=== PATIENT | male | born 1960 | race Hispanic/Latino ===

== ENCOUNTER 2018-06-04 16:55 | Inpatient (IN) | payer OTHER, MEDICARE ==
[~2018-06-04] VITALS: Ht 157.5 cm; Wt 40.6 kg
[2018-06-04] VITALS (14 sets, daily range): BP systolic 105–136; BP diastolic 53–77
[2018-06-04] MEDS ORDERED: HEPARIN SODIUM 1000UNIT/ML 10ML VIAL ONE (17:43)
[2018-06-04] MEDS ORDERED: NITROGLYCERIN 5 MG/ML 10 ML VIAL IV ONE (17:43)
[2018-06-04] MEDS ORDERED: LIDOCAINE HCL 2% 20ML ONE (17:43)
[2018-06-04] MEDS ORDERED: IOHEXOL 350 MG/ML 100ML INFUS..BTL IV ONE (17:46)
[2018-06-04] MEDS ORDERED: METOPROLOL TARTRATE 1 MG/ML 5ML VIAL IV ONE ×3 (18:03→18:20)
[2018-06-04] MEDS ORDERED: MORPHINE SULFATE 2 MG/ML 1ML SYG ONE (18:18)
[2018-06-04] MEDS ORDERED: HYDRALAZINE HCL 20 MG/ML VIAL ONE (18:27)
[2018-06-04] MEDS ORDERED: NITROGLYCERIN 50 MG/D5% WATER 1 BOT IV PRN (18:30)
[2018-06-04] MEDS ORDERED: ACETAMINOPHEN-CODEINE 300/30MG TAB PO PRN ×2 (18:30)
[2018-06-04] MEDS ORDERED: ONDANSETRON HCL 4 MG/2 ML VIAL IVP PRN (18:30)
[2018-06-04] MEDS ORDERED: TEMAZEPAM 30 MG CAP PO PRN (18:30)
[2018-06-04] MEDS ORDERED: HEPARIN 25000 UNITS/250 ML D5W 250 ML IV SCH (18:45)
[2018-06-04] MEDS ORDERED: HYDRALAZINE HCL 20 MG/ML VIAL IV PRN (18:45)
[2018-06-04 19:49] LABS: BASOPHILS % (AUTO) 0.5 % (0.0-5.0); EOSINOPHILS % (AUTO) 3.2 % (0.0-8.0); HEMATOCRIT 39.7 % (42-54); LYMPHOCYTES % (AUTO) 13.6 % (21.0-51.0); MEAN CORPUSCULAR HGB CONC 33.5 g/dL (32.0-36.0); MEAN CORPUSCULAR VOLUME 92.7 fL (79-99); MONOCYTES % (AUTO) 7.8 % (3.0-13.0); NEUTROPHILS % (AUTO) 74.9 % (40.0-77.0); PLATELET COUNT (AUTO) 220 K/uL (130-400); RED BLOOD CELL COUNT(AUTO) 4.28 MIL/uL (4.50-6.20); RED CELL DISTRIBUTION WIDTH 13.3 % (11.0-15.5); WHITE BLOOD COUNT (AUTO) 7.1 K/uL (4.8-10.8)
[2018-06-04 20:05] LABS: HEMOGLOBIN A1C 5.8 % (4.0-6.0)
[2018-06-04 20:11] LABS: INR 1.04 (0.85-1.15); PARTIAL THROMBOPLASTIN TIME 74.5 SEC (26.3-35.5); PROTHROMBIN TIME 10.9 SEC (9.6-11.6)
[2018-06-04 20:17] LABS: ALBUMIN 3.2 g/dL (3.5-5.0); BILIRUBIN,TOTAL 0.3 mg/dL (0.2-1.0); CREATININE 0.9 mg/dL (0.5-1.5); POTASSIUM 3.5 mmol/L (3.5-5.1); TOTAL PROTEIN, SERUM 6.9 g/dL (6.0-8.3)
[2018-06-04 20:58] LABS: TROPONIN I 55.93 ng/mL (0.00-0.06)
[2018-06-04] MEDS: HYDRALAZINE HCL 25 MG TABLET PO SCH (21:00)
[2018-06-04] MEDS: METOPROLOL TARTRATE 50 MG TAB PO SCH (21:15)
[2018-06-04] MEDS: POTASSIUM CHLORIDE 20 MEQ ERTAB PO PRN ×2 (21:29→23:20)
[2018-06-04] MEDS ORDERED: MORPHINE SULFATE 5 MG/ML VIAL IVP SCH (22:00)
[2018-06-04] MEDS ORDERED: ONDANSETRON HCL 4 MG/2 ML VIAL IVP SCH (22:00)
[2018-06-05] VITALS (31 sets, daily range): BP systolic 105–200; BP diastolic 53–98
[2018-06-05 03:59] LABS: HEMATOCRIT 36.8 % (42-54); MEAN CORPUSCULAR HEMOGLOBIN 31.4 pg (27.0-33.0); MEAN CORPUSCULAR HGB CONC 33.8 g/dL (32.0-36.0); PLATELET COUNT (AUTO) 230 K/uL (130-400); RED BLOOD CELL COUNT(AUTO) 3.96 MIL/uL (4.50-6.20); WHITE BLOOD COUNT (AUTO) 8.1 K/uL (4.8-10.8)
[2018-06-05 04:22] LABS: CREATININE 1.1 mg/dL (0.5-1.5); POTASSIUM 4.4 mmol/L (3.5-5.1)
[2018-06-05] MEDS ORDERED: PAPAVERINE HCL 30 MG/ML 2ML VIAL ONE (06:19)
[2018-06-05] MEDS ORDERED: OCTYL 2-CYANOACRYLATE 1 EACH TP ONE ×2 (06:19→10:25)
[2018-06-05] MEDS ORDERED: BACITRACIN 50,000 UNIT VIAL ONE (06:20)
[2018-06-05] MEDS ORDERED: CEFUROXIME SODIUM 1.5 GM VIAL IVP PRN (06:30)
[2018-06-05] MEDS ORDERED: LIDOCAINE PF 2% 5ML ABBOJECT ONE (06:54)
[2018-06-05] MEDS ORDERED: PROTAMINE SULFATE 10 MG/ML 25ML VIAL IV ONE (06:54)
[2018-06-05] MEDS ORDERED: SODIUM BICARB 50MEQ 50ML VIAL ONE ×3 (06:55→11:19)
[2018-06-05] MEDS ORDERED: HEPARIN SODIUM 1000UNIT/ML 10ML VIAL ONE ×2 (06:55→08:12)
[2018-06-05] MEDS ORDERED: FENTANYL CITRATE PF 50 MCG/1 ML 20ML VIAL IJ ONE (06:55)
[2018-06-05] MEDS ORDERED: AMINOCAPROIC ACID 250 MG/ML 20 ML VIAL IV ONE (06:55)
[2018-06-05] MEDS ORDERED: MIDAZOLAM HCL 1 MG/ML 5ML VIAL ONE (06:55)
[2018-06-05] MEDS ORDERED: EPINEPHRINE 1 MG/ML AMPULE ONE (06:55)
[2018-06-05] MEDS ORDERED: NOREPINEPHRINE BITARTRATE 1 MG/1 ML ML IV ONE (06:55)
[2018-06-05] MEDS ORDERED: PROPOFOL 10 MG/ML 20ML VIAL IV ONE (06:55)
[2018-06-05] MEDS ORDERED: KETAMINE 50MG/ML SYRINGE 50 MG/ML DISP.SYRIN IV ONE (06:56)
[2018-06-05] MEDS ORDERED: NITROGLYCERIN 50 MG/D5% WATER 1 BOT ONE (07:23)
[2018-06-05] MEDS ORDERED: ROCURONIUM BROMIDE 10MG/1ML 5ML VL ONE (07:23)
[2018-06-05 08:29] LABS: ABG BASE EXCESS -4.3 mmol/L (-2.0-3.0); ABG HCO3 20.7 mmol/L (21.0-28.0); ABG OXYGEN SATURATION 99.4 % (95.0-99.0); ABG PCO2 38 mmHg (35-48)
[2018-06-05] MEDS: HYDRALAZINE HCL 25 MG TABLET PO SCH ×2 (09:00→11:40)
[2018-06-05] MEDS: METOPROLOL TARTRATE 50 MG TAB PO SCH (09:00)
[2018-06-05] MEDS: PNEUMOCOCCAL VACCINE POLYVALENT 0.5 ML/VIAL [PPV] IM SCH (09:00)
[2018-06-05] MEDS: PANTOPRAZOLE SODIUM 40 MG TABLET.DR PO SCH (09:00)
[2018-06-05] MEDS: ASPIRIN 81MG TAB.CHEW PO SCH (09:00)
[2018-06-05] MEDS ORDERED: PNEUMOCOCCAL VACCINE POLYVALENT 0.5 ML/VIAL [PPV] IM ONE (09:00)
[2018-06-05] MEDS ORDERED: ESMOLOL HCL 10 MG/ML 10 ML VIAL ONE (09:25)
[2018-06-05 10:18] LABS: ABG BASE EXCESS 2.9 mmol/L (-2.0-3.0); ABG HCO3 26.7 mmol/L (21.0-28.0); ABG OXYGEN SATURATION 98.8 % (95.0-99.0); ABG PCO2 38 mmHg (35-48)
[2018-06-05] MEDS ORDERED: MORPHINE SULFATE 4 MG/1ML SYG ONE (10:44)
[2018-06-05] MEDS ORDERED: SODIUM CHLORIDE 0.9% 500ML 500 ML IV SCH (10:59)
[2018-06-05] MEDS ORDERED: PROPOFOL 1000 MG/100 ML 100 ML IV PRN (11:00)
[2018-06-05] MEDS ORDERED: CALCIUM GLUCONATE 1 GM in SODIUM CHLORIDE 0.9% 50 ML IV PRN (11:00)
[2018-06-05] MEDS ORDERED: ONDANSETRON HCL 4 MG/2 ML VIAL IV PRN (11:00)
[2018-06-05] MEDS ORDERED: NOREPINEPHRINE 4MG/NS 250ML 250 ML IV PRN (11:00)
[2018-06-05] MEDS ORDERED: NICARDIPINE HCL 100 MG in SODIUM CHLORIDE 0.9% 60 ML IV SCH (11:00)
[2018-06-05] MEDS ORDERED: ACETAMINOPHEN 650 MG SUPPOSITORY RC PRN (11:00)
[2018-06-05] MEDS ORDERED: INSULIN REGULAR, HUMAN 3ML 100 UNIT in SODIUM CHLORIDE 0.9% 99 ML IV SCH ×2 (11:00)
[2018-06-05] MEDS ORDERED: SODIUM CHLORIDE 0.9% 250 ML IV PRN (11:00)
[2018-06-05] MEDS ORDERED: ALBUMIN (HUMAN) 5% 250 ML IV PRN (11:00)
[2018-06-05] MEDS ORDERED: ACETAMINOPHEN 325 MG TAB PO PRN (11:00)
[2018-06-05] MEDS ORDERED: MORPHINE SULFATE 2 MG/ML 1ML SYG IV PRN (11:00)
[2018-06-05] MEDS ORDERED: SODIUM CHLORIDE 0.9% 1000ML 1,000 ML IV SCH (11:00)
[2018-06-05] MEDS ORDERED: NITROGLYCERIN 50 MG/D5% WATER 250 BOT IV SCH (11:00)
[2018-06-05] MEDS ORDERED: SODIUM BICARB 8.4% 50ML SYRINGE IV PRN (11:00)
[2018-06-05] MEDS ORDERED: EPINEPHRINE 8 MG in SODIUM CHLORIDE 0.9% 250 ML IV PRN (11:00)
[2018-06-05] MEDS ORDERED: DEXTROSE 50%-WATER 50 ML DISP.SYRIN IV PRN (11:00)
[2018-06-05] MEDS ORDERED: AMINOCAPROIC ACID 15,000 MG in SODIUM CHLORIDE 0.9% 250 ML IV SCH (11:00)
[2018-06-05] MEDS ORDERED: POTASSIUM PHOS 15 mMOL+NS250ML 250 ML IV PRN (11:00)
[2018-06-05] MEDS ORDERED: POTASSIUM CHLORIDE 20MEQ/100ML 100 ML IV PRN (11:00)
[2018-06-05] MEDS ORDERED: SODIUM BICARB 50MEQ 50ML VIAL IV PRN (11:00)
[2018-06-05] MEDS ORDERED: MORPHINE SULFATE 4 MG/1ML SYG IV PRN (11:00)
[2018-06-05] MEDS ORDERED: GLUCAGON 1MG KIT 1 MG ML IM PRN (11:00)
[2018-06-05] MEDS ORDERED: SODIUM CHLORIDE 0.9% 10 ML VIAL IVP PRN (11:00)
[2018-06-05 11:17] LABS: ABG BASE EXCESS -1.5 mmol/L (-2.0-3.0); ABG HCO3 24.6 mmol/L (21.0-28.0); ABG PCO2 47 mmHg (35-48)
[2018-06-05] MEDS ORDERED: POTASSIUM CHLORIDE 20MEQ/100ML 100 ML IV ONE (11:20)
[2018-06-05 11:22] LABS: BASOPHILS % (AUTO) 0.3 % (0.0-5.0); EOSINOPHILS % (AUTO) 0.8 % (0.0-8.0); HEMATOCRIT 36.3 % (42-54); LYMPHOCYTES % (AUTO) 4.4 % (21.0-51.0); MEAN CORPUSCULAR HEMOGLOBIN 31.6 pg (27.0-33.0); MEAN CORPUSCULAR HGB CONC 33.9 g/dL (32.0-36.0); MEAN CORPUSCULAR VOLUME 93.3 fL (79-99); MONOCYTES % (AUTO) 4.2 % (3.0-13.0); NEUTROPHILS % (AUTO) 90.3 % (40.0-77.0); PLATELET COUNT (AUTO) 176 K/uL (130-400); RED BLOOD CELL COUNT(AUTO) 3.89 MIL/uL (4.50-6.20); WHITE BLOOD COUNT (AUTO) 11.8 K/uL (4.8-10.8)
[2018-06-05 11:28] LABS: CREATININE 0.9 mg/dL (0.5-1.5); POTASSIUM 3.4 mmol/L (3.5-5.1)
[2018-06-05 11:32] LABS: MAGNESIUM 1.5 mg/dL (1.80-2.40); PHOSPHORUS 4.1 mg/dL (2.5-4.9)
[2018-06-05 12:47] LABS: ABG BASE EXCESS 3.1 mmol/L (-2.0-3.0); ABG HCO3 28.2 mmol/L (21.0-28.0); ABG OXYGEN SATURATION 98.7 % (95.0-99.0); ABG PCO2 45 mmHg (35-48)
[2018-06-05] MEDS: MAGNESIUM 2GM PREMIX 50ML 50 ML IV PRN (13:18)
[2018-06-05] MEDS ORDERED: KETOROLAC TROMETHAMINE 30MG/ML ONE (15:20)
[2018-06-05] MEDS ORDERED: KETOROLAC TROMETHAMINE 30MG/ML IV SCH (15:30)
[2018-06-05 17:04] LABS: MAGNESIUM 2.4 mg/dL (1.80-2.40); POTASSIUM 3.7 mmol/L (3.5-5.1)
[2018-06-05 18:09] LABS: ABG BASE EXCESS -0.4 mmol/L (-2.0-3.0); ABG PCO2 39 mmHg (35-48)
[2018-06-05] MEDS: FAMOTIDINE/PF 20 MG/2 ML VIAL IV SCH (21:24)
[2018-06-05] MEDS: CEFUROXIME SODIUM 1.5 GM VIAL IVP SCH (21:24)
[2018-06-05] MEDS: TRAMADOL HCL 50 MG TABLET PO PRN ×2 (21:30→22:49)
[2018-06-06] VITALS (25 sets, daily range): BP systolic -7–163; BP diastolic -9–85
[2018-06-06] MEDS: TRAMADOL HCL 50 MG TABLET PO PRN ×3 (02:10→20:54)
[2018-06-06 03:46] LABS: HEMATOCRIT 34.2 % (42-54); MEAN CORPUSCULAR HEMOGLOBIN 30.9 pg (27.0-33.0); MEAN CORPUSCULAR HGB CONC 33.1 g/dL (32.0-36.0); MEAN CORPUSCULAR VOLUME 93.5 fL (79-99); PLATELET COUNT (AUTO) 130 K/uL (130-400); RED BLOOD CELL COUNT(AUTO) 3.66 MIL/uL (4.50-6.20); RED CELL DISTRIBUTION WIDTH 12.9 % (11.0-15.5); WHITE BLOOD COUNT (AUTO) 10.3 K/uL (4.8-10.8)
[2018-06-06 03:57] LABS: CREATININE 0.9 mg/dL (0.5-1.5); INR 1.09 (0.85-1.15); POTASSIUM 4.1 mmol/L (3.5-5.1); PROTHROMBIN TIME 11.4 SEC (9.6-11.6)
[2018-06-06] MEDS: PANTOPRAZOLE SODIUM 40 MG TABLET.DR PO SCH (08:30)
[2018-06-06] MEDS: CEFUROXIME SODIUM 1.5 GM VIAL IVP SCH ×2 (08:30→20:57)
[2018-06-06] MEDS: ENOXAPARIN SODIUM 40 MG/0.4 ML SYRINGE SQ SCH (08:30)
[2018-06-06] MEDS: ASPIRIN 81MG TAB.CHEW PO SCH (08:30)
[2018-06-06] MEDS: FAMOTIDINE/PF 20 MG/2 ML VIAL IV SCH ×2 (08:38→20:56)
[2018-06-06] MEDS ORDERED: ATORVASTATIN CALCIUM 40 MG TABLET PO SCH (09:00)
[2018-06-06] MEDS ORDERED: CARVEDILOL 3.125 MG TABLET PO SCH (09:00)
[2018-06-06] MEDS ORDERED: ASPIRIN 81MG TAB.CHEW PO SCH (09:00)
[2018-06-06] MEDS ORDERED: LOSARTAN 50 MG TABLET PO SCH (09:00)
[2018-06-06] MEDS ORDERED: LABETALOL 20 MG/4 ML DISP.SYRIN IV PRN (10:45)
[2018-06-06] MEDS: CARVEDILOL 6.25 MG TABLET PO SCH (20:54)
[2018-06-06] MEDS: ATORVASTATIN CALCIUM 40 MG TABLET PO SCH (20:57)
[2018-06-07] VITALS (21 sets, daily range): BP systolic 93–129; BP diastolic 43–64
[2018-06-07] MEDS: TRAMADOL HCL 50 MG TABLET PO PRN (05:09)
[2018-06-07 05:34] LABS: HEMATOCRIT 30.3 % (42-54); MEAN CORPUSCULAR HEMOGLOBIN 32.1 pg (27.0-33.0); MEAN CORPUSCULAR HGB CONC 34.1 g/dL (32.0-36.0); MEAN CORPUSCULAR VOLUME 94.1 fL (79-99); PLATELET COUNT (AUTO) 136 K/uL (130-400); RED BLOOD CELL COUNT(AUTO) 3.22 MIL/uL (4.50-6.20); RED CELL DISTRIBUTION WIDTH 12.9 % (11.0-15.5); WHITE BLOOD COUNT (AUTO) 7.1 K/uL (4.8-10.8)
[2018-06-07 05:43] LABS: CREATININE 0.9 mg/dL (0.5-1.5); MAGNESIUM 1.9 mg/dL (1.80-2.40); POTASSIUM 4.4 mmol/L (3.5-5.1)
[2018-06-07] MEDS ORDERED: METOPROLOL TARTRATE 25 MG TAB PO SCH (09:00)
[2018-06-07] MEDS ORDERED: LOSARTAN 50 MG TABLET PO SCH (09:00)
[2018-06-07] MEDS: PANTOPRAZOLE SODIUM 40 MG TABLET.DR PO SCH (09:08)
[2018-06-07] MEDS: ASPIRIN 81MG TAB.CHEW PO SCH (09:08)
[2018-06-07] MEDS: ENOXAPARIN SODIUM 40 MG/0.4 ML SYRINGE SQ SCH (09:08)
[2018-06-07] MEDS: FAMOTIDINE/PF 20 MG/2 ML VIAL IV SCH ×2 (09:08→21:12)
[2018-06-07] MEDS: CARVEDILOL 6.25 MG TABLET PO SCH ×2 (09:09→21:14)
[2018-06-07] MEDS: LOSARTAN 50 MG TABLET PO SCH (09:09)
[2018-06-07] MEDS: PNEUMOCOCCAL VACCINE POLYVALENT 0.5 ML/VIAL [PPV] IM SCH (13:26)
[2018-06-07] MEDS: MAGNESIUM 2GM PREMIX 50ML 50 ML IV PRN (14:38)
[2018-06-07] MEDS: ATORVASTATIN CALCIUM 40 MG TABLET PO SCH (21:13)
[2018-06-08] VITALS (7 sets, daily range): BP systolic 104–148; BP diastolic 56–78
[2018-06-08 04:04] LABS: HEMATOCRIT 29.6 % (42-54); MEAN CORPUSCULAR HEMOGLOBIN 31.8 pg (27.0-33.0); MEAN CORPUSCULAR VOLUME 93.5 fL (79-99); NUCLEATED RED BLOOD CELLS 0.1 % (0.0-0.19); PLATELET COUNT (AUTO) 147 K/uL (130-400); RED BLOOD CELL COUNT(AUTO) 3.17 MIL/uL (4.50-6.20); RED CELL DISTRIBUTION WIDTH 12.6 % (11.0-15.5); WHITE BLOOD COUNT (AUTO) 6.3 K/uL (4.8-10.8)
[2018-06-08 04:05] LABS: MAGNESIUM 1.9 mg/dL (1.80-2.40); POTASSIUM 3.9 mmol/L (3.5-5.1)
[2018-06-08 04:14] LABS: B-TYPE NATRIURETIC PEPTIDE 1040 pg/mL (0-100)
[2018-06-08] MEDS: LOSARTAN 50 MG TABLET PO SCH (10:02)
[2018-06-08] MEDS: CARVEDILOL 6.25 MG TABLET PO SCH ×2 (10:02→21:17)
[2018-06-08] MEDS: PANTOPRAZOLE SODIUM 40 MG TABLET.DR PO SCH (10:02)
[2018-06-08] MEDS: ASPIRIN 81MG TAB.CHEW PO SCH (10:02)
[2018-06-08] MEDS: FUROSEMIDE 20 MG TABLET PO SCH ×2 (10:03→16:43)
[2018-06-08] MEDS: FAMOTIDINE/PF 20 MG/2 ML VIAL IV SCH ×2 (10:03→21:17)
[2018-06-08] MEDS: ENOXAPARIN SODIUM 30 MG/0.3 ML SQ SCH (10:04)
[2018-06-08] MEDS ORDERED: LACTULOSE 20 GM/30 ML UDCUP PO PRN (14:45)
[2018-06-08] MEDS: ATORVASTATIN CALCIUM 40 MG TABLET PO SCH (21:16)
[2018-06-09 03:46] VITALS: BP 151/71
[2018-06-09 04:22] LABS: CREATININE 0.9 mg/dL (0.5-1.5); MAGNESIUM 1.7 mg/dL (1.80-2.40); PHOSPHORUS 2.8 mg/dL (2.5-4.9); POTASSIUM 3.7 mmol/L (3.5-5.1)
[2018-06-09 05:06] VITALS: BP 137/71
[2018-06-09 07:40] VITALS: BP 149/78
[2018-06-09] MEDS: CARVEDILOL 6.25 MG TABLET PO SCH (08:09)
[2018-06-09] MEDS: ASPIRIN 81MG TAB.CHEW PO SCH (08:09)
[2018-06-09] MEDS: ENOXAPARIN SODIUM 30 MG/0.3 ML SQ SCH (08:10)
[2018-06-09] MEDS: LOSARTAN 50 MG TABLET PO SCH (08:10)
[2018-06-09] MEDS: PANTOPRAZOLE SODIUM 40 MG TABLET.DR PO SCH (08:10)
[2018-06-09] MEDS: FUROSEMIDE 20 MG TABLET PO SCH (08:10)
[2018-06-09] MEDS: FAMOTIDINE/PF 20 MG/2 ML VIAL IV SCH (08:11)
[2018-06-09 11:42] VITALS: BP 132/72
[2018-06-09] MEDS ORDERED: ASPI-1005 PO (12:04)
[2018-06-09] MEDS ORDERED: LOSA50TA2 PO (12:04)
[2018-06-09] MEDS ORDERED: FURO20TA6 PO (12:04)
[2018-06-09] MEDS ORDERED: ATOR40TA69 PO (12:04)
[2018-06-09] MEDS ORDERED: CARV6.2579 PO (12:04)
[2018-06-11 13:02] LABS: ABG BASE EXCESS 0.9 mmol/L (-2.0-3.0); ABG HCO3 26.4 mmol/L (21.0-28.0); ABG OXYGEN SATURATION 98.9 % (95.0-99.0); ABG PCO2 45 mmHg (35-48)
== END 2018-06-09 13:20 | disposition home or self-care (01) | DRG 233 ==
LOC: 2CH 17:30 → 2CV 06-05 07:56 → 2CH 06-06 05:27 → 2DH 06-09 04:26
PROVIDERS: ADMIT Internal Medicine; ATTEND Internal Medicine
PROC: 4A023N7 Measurement of Cardiac Sampling and Pressure, Left Heart, Percutaneous Approach (ICD-10-PCS; principal; 2018-06-04)
PROC: B2111ZZ Fluoroscopy of Multiple Coronary Arteries using Low Osmolar Contrast (ICD-10-PCS; 2018-06-04)
PROC: B2151ZZ Fluoroscopy of Left Heart using Low Osmolar Contrast (ICD-10-PCS; 2018-06-04)
PROC: 021009W Bypass Coronary Artery, One Artery from Aorta with Autologous Venous Tissue, Open Approach (ICD-10-PCS; 2018-06-05)
PROC: 06BQ4ZZ Excision of Left Saphenous Vein, Percutaneous Endoscopic Approach (ICD-10-PCS; 2018-06-05)
PROC: 02100Z9 Bypass Coronary Artery, One Artery from Left Internal Mammary, Open Approach (ICD-10-PCS; 2018-06-05 07:52)
PROC: 3E02340 Introduction of Influenza Vaccine into Muscle, Percutaneous Approach (ICD-10-PCS; 2018-06-07)
PROC: 3E0234Z Introduction of Serum, Toxoid and Vaccine into Muscle, Percutaneous Approach (ICD-10-PCS; 2018-06-07)
PROC: 3E02340 Introduction of Influenza Vaccine into Muscle, Percutaneous Approach (ICD-10-PCS; 2018-06-09)
DX: I21.09 ST elevation (STEMI) myocardial infarction involving other coronary artery of anterior wall (principal); I50.21 Acute systolic (congestive) heart failure; I74.5 Embolism and thrombosis of iliac artery; I11.0 Hypertensive heart disease with heart failure; I25.10 Atherosclerotic heart disease of native coronary artery without angina pectoris; Z72.0 Tobacco use; I25.5 Ischemic cardiomyopathy; E78.5 Hyperlipidemia, unspecified; I73.9 Peripheral vascular disease, unspecified; L40.9 Psoriasis, unspecified; I25.2 Old myocardial infarction; Z79.899 Other long term (current) drug therapy; Z23 Encounter for immunization
CPT/HCPCS: 36415; 71045; 80048; 80053; 80061; 82435; 82550; 82803; 82947; 82948; 83036; 83605; 83735; 83874; 83880; 84100; 84132; 84295; 84484; 85018; 85025; 85027; 85347; 85610; 85730; 86850; 86900; 86901; 86922; 90732; 93005; 93458; 94002; 94010; 94150; 97039; A4218; A7048; C1894; J0171; J0360; J0697; J1644; J1650; J1815; J1885; J2001; J2250; J2270; J2405; J2440; J2704; J2720; J3010; J3475; J3480; J3490; J7030; J7040; Q2035; Q9967